=== PATIENT | female | born 1945 | race Caucasian/White ===

== ENCOUNTER 2017-03-07 02:56 | Emergency (ER) | payer MEDICARE, OTHER ==
[~2017-03-07] VITALS: Ht 165.1 cm; Wt 73.8 kg
[~2017-03-07 02:56] MED LIST: ADVA250A INH; ALPR0.5T99 PO; CETI10CH PO; CRANPOW2; ENJUVIA; HYZA100T6 PO; VITA100017 PO
[2017-03-07 03:02] VITALS: BP 137/75; PULSE 104; RESP 16; TEMP 97.6; O2SAT 94
[2017-03-07] MEDS ORDERED: DEXAMETHASONE SOD PHOS 4 MG/ML VIAL IV PUSH ONE (03:15)
--- NOTE | 2017-03-07 03:17 | PD ---
HPI Chief Complaint: Eye swelling/allergic reaction. Time Seen by Provider: 03:15 Travel History International Travel<30 days: No Contact w/Intl Traveler<30days: No History of Present Illness HPI Patient is a 71-year-old female presents the emergency department for evaluation of eye swelling and allergic reaction. Patient states she is allergic to Dr. Mcdonnell just recently spent a week and hernia with her daughter who does have dogs in the house, she states that she has been having some eye itching all week and then on her trip back from [place] today she noticed her eyes started to swell. Prior to arrival the patient had 2 doses of 25 mg of Benadryl last dose approximately 45 minutes prior to arrival. She also took some tablets she had left over from prior allergic reaction as well as a breathing treatment, she is unsure how much prednisone she took but hasn't. He' ll and his pillows 10 mg of prednisone of drug reference. She states that she feels a little funny in the back of her throat but is not having any problems swallowing or breathing. Denies any fever denies any trauma to his face. PFSH Past Medical History Cancer: No Diabetes: No Glaucoma: No Hepatitis: No Hiatal Hernia: No Hypertension: Yes Thyroid Disease: No Past Surgical History Eye Surgery: Yes (BLEPH) Gynecologic Surgery: Yes (HYSTERECTOMY) Hysterectomy: Yes Pacemaker: No Social History Alcohol Use: Yes (WINE 2 GLASSES/DAY) Tobacco Use: No Allergies-Medications (Allergen,Severity, Reaction): Coded Allergies: No Known Allergies (Verified , 09/28/08) Reported Meds & Prescriptions Reported Meds & Active Scripts Active Prednisone 20 Mg Tab 60 Mg PO DAILY 5 Days Reported Advair Diskus Inh (Fluticasone-Salmeterol Inh) 100-50 Mcg/Blist Aer 1 Puff INH BID Rinse mouth after use. Diphenhydramine (Diphenhydramine HCl) 25 Mg Cap 25 Mg PO ONCE Prednisone 10 Mg Tab 10 Mg PO DAILY Hydrochlorothiazide 25 Mg Tab 25 Mg PO DAILY Benicar (Olmesartan) 20 Mg Tab 20 Mg PO DAILY Xanax (Alprazolam) 1 Mg Tab 1 Mg PO BID PRN Review of Systems Except as stated in HPI: all other systems reviewed are Neg Physical Exam Narrative GENERAL: Well-developed well-nourished, no apparent distress, obvious facial swelling. SKIN: There is some erythema and edema periorbitally bilaterally. No hives seen on her back or neck. HEAD: Atraumatic. Normocephalic. EYES: Pupils equal and round. No scleral icterus. No injection or drainage. ENT: No nasal bleeding or discharge. Mucous membranes pink and moist. Oropharynx clear, airway widely patent, swallowing is intact and easy. NECK: Trachea midline. No JVD. CARDIOVASCULAR: Regular rate and rhythm. No murmur appreciated. RESPIRATORY: No accessory muscle use. Clear to auscultation. Breath sounds equal bilaterally. GASTROINTESTINAL: Abdomen soft, non-tender, nondistended. Hepatic and splenic margins not palpable. MUSCULOSKELETAL: No obvious deformities. No clubbing. No cyanosis. No edema. NEUROLOGICAL: Awake and alert. No obvious cranial nerve deficits. Motor grossly within normal limits. Normal speech. PSYCHIATRIC: Appropriate mood and affect; insight and judgment normal. Data Data Last Documented VS Vital Signs Date Time Temp Pulse Resp B/P Pulse Ox O2 Delivery O2 Flow Rate FiO2 03/07/17 04:58 90 20 107/64 98 03/07/17 03:02 97.6 Orders Dexamethasone Inj (Decadron Inj) (03/07/17 03:15) Famotidine Inj (Pepcid Inj) (03/07/17 03:30) MDM Medical Decision Making Medical Screen Exam Complete: Yes Emergency Medical Condition: Yes Differential Diagnosis Allergic reaction, anaphylaxis is excluded clinically, cellulitis unlikely, atopic reaction. Narrative Course Patient was roomed in the emergency department, she was given Decadron 10 mg IV , Pepcid IV. She is are he had a total of 50 mg of Benadryl prior to arrival. Over the next 2 hours the patient's redness had nearly completely resolved and the edema was starting to subside. When not completely resolved she is not having any airway symptoms in the stable for discharge. Discussed steroid course follow-up with primary care physician and return to ED criteria. She does have an EpiPen at home and the use of such a device was discussed with her and if she should need such devices call 911. She understands and was discharged home in no apparent distress Diagnosis Primary Impression: Allergic reaction Qualified Code: T78.40XA - Allergic reaction, initial encounter Med/Other Pt SpecificInfo: Prescription(s) given Scripts Prednisone 20 Mg Tab60 Mg PO DAILY 5 Days Ref 0 Prov:Tree Whitaker MD 03/07/17 Disposition: 01 DISCHARGE HOME Condition: Stable Tree Whitaker MD Mar 07, 2017 03:17
[2017-03-07] MEDS ORDERED: FAMOTIDINE 20 MG/2 ML VIAL IV PUSH ONE (03:30)
[2017-03-07] MEDS ORDERED: HYDR25TA5 PO (03:54)
[2017-03-07] MEDS ORDERED: XANA1TAB2 PO (03:54)
[2017-03-07] MEDS ORDERED: DIPH25CA PO (03:54)
[2017-03-07] MEDS ORDERED: PRED10 PO (03:54)
[2017-03-07] MEDS ORDERED: ADVA100A INH (03:54)
[2017-03-07] MEDS ORDERED: BENI20TA5 PO (03:54)
[2017-03-07] MEDS ORDERED: PRED20 PO (04:43)
[2017-03-07 04:58] VITALS: BP 107/64
== END 2017-03-07 05:00 | disposition home or self-care (01) ==
LOC: PHED 02:56
DX: T78.40XA Allergy, unspecified, initial encounter (principal); I10 Essential (primary) hypertension
CPT/HCPCS: 96374; 96375; 99284; J1100